=== PATIENT | female | born 1980 | race Caucasian/White ===

== ENCOUNTER 2019-05-28 22:22 | Emergency (ER) | payer OTHER ==
[2019-05-28 22:30] VITALS: BP 109/70; PULSE 94
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
== END 2019-05-28 23:50 | disposition home or self-care (01) ==
LOC: KA.ED 22:22
DX: Z04.1 Encounter for examination and observation following transport accident (principal); F17.210 Nicotine dependence, cigarettes, uncomplicated
CPT/HCPCS: 99283